=== PATIENT | male | born 1960 | race African-American/Black ===

== ENCOUNTER 2023-09-26 11:08 | Emergency (ER) | payer SELFPAY ==
[2023-09-26 11:18] VITALS: BP 128/81
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
[2023-09-26 13:27] VITALS: BP 132/78
== END 2023-09-26 13:29 | disposition home or self-care (01) ==
LOC: EMR 11:08
PROVIDERS: EMERGENCY PHYSICIAN Student in an Organized Health Care Education/Training Program
DX: S09.90XA Unspecified injury of head, initial encounter (principal); V28.01XA Electric (assisted) bicycle driver injured in noncollision transport accident in nontraffic accident, initial encounter
CPT/HCPCS: 99284; 70450; 72125

== ENCOUNTER 2023-10-14 14:48 | Emergency (ER) | payer SELFPAY ==
[2023-10-14 14:52] VITALS: BP 147/86
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
[2023-10-14] MEDS: ADACEL 0.5 ML IM (16:14)
[2023-10-14 16:21] VITALS: BP 147/86
== END 2023-10-14 16:30 | disposition home or self-care (01) ==
LOC: EMR 14:48
PROVIDERS: EMERGENCY PHYSICIAN Emergency Medicine
DX: S00.511A Abrasion of lip, initial encounter (principal); S20.212A Contusion of left front wall of thorax, initial encounter; V86.56XA Driver of dirt bike or motor/cross bike injured in nontraffic accident, initial encounter; Z23 Encounter for immunization; I10 Essential (primary) hypertension; E78.00 Pure hypercholesterolemia, unspecified; Z87.891 Personal history of nicotine dependence
CPT/HCPCS: 99283; 90471; 71101; 90715; 93005

== ENCOUNTER 2024-07-05 08:47 | Emergency (ER) | payer MEDICARE, SELFPAY ==
[2024-07-05 08:49] VITALS: BP 164/93
--- NOTE | 2024-07-05 09:32 | ED.GENMED ---
History of Present Illness
General
Chief Complaint: Musculo-Skeletal Complaint
Source: patient
Exam Limitations: none
Time Seen by Provider: 07/05/24 08:55
Nursing documentation reviewed up to this point in time: agreed with
History of Present Illness
History of Present Illness:
64-year-old male with a history of seizures, hypertension, hyperlipidemia, prostate cancer not currently being treated, in the process of being worked up, chronic back pain status post multiple back surgeries
Presents for right arm pain after a mechanical trip and fall while he was at work yesterday. Patient says he did not see something behind him and fell on an outstretched right arm landing on his elbow primarily. Patient has mostly right wrist and
right shoulder pain. He has minimal right elbow pain. Is worse with movement. He took Tylenol this morning. No numbness no tingling no weakness. He has not had a headache, did not strike his head and denies any neck pain. He has chronic lower
back pain feels like his right hip and lower back or may be slightly tweaked but not worse than his typical.
Past History
Past History
ED Past Medical History: Cancer (prostate), HTN, Hypercholesterolemia and NIDDM
ED Past Surgical History: Orthopedic
Social History
Tobacco: Former smoker
Alcohol: None
Personal:
Living: alone
Employment: Employed ([employer])
Review of Systems
Review of Systems
Allergies reviewed?: Yes
All Other Systems: Not applicable
Phy Exam
Physical Exam
Physical Exam:
GENERAL: Alert , in no apparent distress, comfortable at rest
HEAD: NCAT
NECK: no midline tenderness, active ROM intact, no paraspinal muscle tenderness;
CARDIAC: Regular rate and rhythm, no edema
LUNGS: Clear breath sounds bilaterally, no acute respiratory distress, no wheezes/rales/rhonchi
NEUROLOGICAL: Alert and oriented, no focal neuro deficits, CN intact, 5/5 strength, sensation intact, ambulating normally
SKIN: Warm and dry, no skin changes
MUSCULOSKELETAL: Right shoulder normal inspection, mild tenderness to the humeral head, patient is able to touch the opposite shoulder but does have some pain with rotation internally, can fully extend and abduct, humerus normal, slight pain with
movement of the elbow but no tenderness reproducible, most tenderness was on the right wrist right scaphoid
handotherwise normla
normal snesation
slight pain with flexion/extension wrist
tenderness snuff box
back: nontendermidline
able toflex
PSYCH: Normal and appropriate interaction.
Course
Orders/Labs/Results
Orders:
Orders
07/05/24 09:05
CR Shoulder, Trauma - Right Urgent
Comment:
Reason For Exam: right shoulder pain after fall
07/05/24 09:06
CR Elbow - Right Min 3 Views Urgent
Comment:
Reason For Exam: right elbow pain after fall
CR Wrist - Right Min 3 Views Urgent
Comment:
Reason For Exam: right wrist pain after fall scpahoid tend
07/05/24 09:55
Ibuprofen [Motrin] 600 mg PO NOW STA
Vital Signs
Initial and Last Documented VS:
Initial Vital Signs
Temp Pulse Resp BP Pulse Ox
36.7 C 61 16 164/93 98
07/05/24 08:49 07/05/24 08:49 07/05/24 08:49 07/05/24 08:49 07/05/24 08:49
Last Documented Vital Signs
Temp Pulse Resp BP Pulse Ox
36.7 C 61 16 164/93 98
07/05/24 08:49 07/05/24 08:49 07/05/24 08:49 07/05/24 08:49 07/05/24 08:49
ED Attending Note
-
Portions of this chart may have been created with voice recognition software.� Occasional wrong word or��sound alike� substitutions may have occurred due to the inherent limitations of voice recognition software.
Discharge Plan
Departure
Patient Disposition: Home (Routine Discharge)
Date of Disposition: 07/05/24
Time of Disposition: 09:53
Patient with high blood pressure during this ER visit?: No
Condition: Fair
Covid-19: Not Applicable
Discharge Problem:
Fall, Sprain of wrist, Sprain of right shoulder
Instructions: Sprain (DC), BLOOD PRESSURE
Referrals:
Celi Joe MD [Family Provider, Internal Medicine] - Follow up in 2-3 days
Stand Alone Forms: Return to Work
Activity Restrictions/Additional Instructions:
You likely sprained your wrist and shoulder from the fall. You had no fractures. You do have arthritis in all of your joints that were x-rayed.
Try ibuprofen every 8 hours if you can tolerate it. Otherwise do Tylenol 3 times a day. Follow-up with Workmen's Comp. as needed. WEAR THE SPLINTN FOR THE NEXT FEW DAYS TO HELP WITH HEALING. Return for worsening symptoms like severe pain,
inability to move, swelling, numbness or tingling or any concerns
Interventions
Interventions:
*Risk Screen - Suicide Last Done: 07/05/24 08:49
*General Assessment Last Done: 07/05/24 09:03
*Neglect/Abuse Screening Last Done: 07/05/24 08:49
*ED- Fall Risk Assessment Last Done: 07/05/24 09:03
*ED COVID-19 Vaccine History Last Done: 07/05/24 09:03
*Nursing Disposition Last Done: 07/05/24 10:18
ED-Musculoskeletal Assessment Last Done: 07/05/24 09:03
Discharge Date and Time
Discharge Date/Time: 07/05/24 10:19
Print Language: JORDANIAN
[2024-07-05] MEDS: MOTRIN 600 MG PO (10:13)
== END 2024-07-05 10:19 | disposition home or self-care (01) ==
LOC: EMR 08:47
PROVIDERS: EMERGENCY PHYSICIAN Student in an Organized Health Care Education/Training Program; FAMILY PHYSICIAN Internal Medicine
DX: S43.401A Unspecified sprain of right shoulder joint, initial encounter (principal); S63.501A Unspecified sprain of right wrist, initial encounter; W01.0XXA Fall on same level from slipping, tripping and stumbling without subsequent striking against object, initial encounter; I10 Essential (primary) hypertension; E78.00 Pure hypercholesterolemia, unspecified; E11.9 Type 2 diabetes mellitus without complications; Z87.891 Personal history of nicotine dependence
CPT/HCPCS: 99283; 73030; 73080; 73110

== ENCOUNTER 2024-10-26 18:13 | Emergency (ER) | payer MEDICARE, SELFPAY ==
[2024-10-26 18:21] VITALS: BP 163/102
[2024-10-26 19:33] VITALS: BMI 31.2
[2024-10-26 19:37] VITALS: BP 147/90
[2024-10-26 20:00] VITALS: BP 150/99
[2024-10-26 20:01] LABS: COVID-19 Antigen Negative (Negative)
--- NOTE | 2024-10-26 20:24 | ED.GENMED ---
History of Present Illness
General
Chief Complaint: Cold/Flu/URI Symptoms
Source: patient
Time Seen by Provider: 10/26/24 19:33
History of Present Illness
History of Present Illness:
Note:
CHIEF COMPLAINT(S)
Exposure to COVID-19.
HISTORY OF PRESENT ILLNESS
The patient is a 64-year-old male who has been exposed to a roommate with COVID-19. He reports no symptoms associated with COVID-19 at this time and confirms a negative COVID-19 test result. The patient works around people all day, which may
increase his exposure risk. He inquires about the potential impact of cancer on COVID-19 severity, revealing his history of prostate cancer, for which he undergoes regular testing every six months. Recently, his prostate-specific antigen levels were
elevated, and a repeat biopsy is planned. He is not receiving chemotherapy.
CHRONIC MEDICAL CONDITIONS SIGNIFICANTLY AFFECTING CARE
The patient has a history of prostate cancer and is undergoing bi-annual testing for his condition.
PHYSICAL EXAM
General: Alert, no acute distress.
Cardiovascular: Heart sounds normal. Blood pressure is noted to be elevated during the visit.
Respiratory: Lungs sound clear to auscultation.
PLAN
1. Advise the patient to maintain isolation practices by ensuring good ventilation in his own space and minimizing prolonged direct exposure to the infected roommate.
2. Recommend the patient take supplements including Vitamin C, Vitamin D, and Zinc to aid in boosting the immune system.
3. Monitor blood pressure and follow-up with a primary care physician to reevaluate.
4. Encourage protective measures such as mask-wearing to reduce risk of infection.
DIFFERENTIAL DIAGNOSIS
The Differential Diagnosis includes, in no particular order and is not limited to:
1. COVID-19 infection
2. Common viral upper respiratory infections
3. Influenza
4. Allergic Rhinitis
5. Sinusitis
6. Pneumonia
7. Pulmonary Embolism
8. Asthma Exacerbation
9. Chronic Obstructive Pulmonary Disease Exacerbation
10. Anxiety-induced symptoms
Disposition:
SUMMARY OF ENCOUNTER
A 63-year-old male presented for evaluation following exposure to COVID-19. The patient is asymptomatic and reports a negative COVID-19 test result. During the visit, it was confirmed that he remains in good health with no symptoms of COVID-19.
PLAN
1. Recommend the patient take vitamin supplements such as Vitamin C, Vitamin D, and Zinc to support immune function.
2. Advise the patient to minimize exposure to others, particularly in healthcare settings, to reduce the risk of COVID-19 transmission.
PATIENT EDUCATION AND COUNSELING
The patient was educated on the importance of avoiding exposure to the infected individual and maintaining isolation practices to prevent COVID-19 transmission.
MEDICAL DECISION MAKING
-Complexity of Data Reviewed: Chronic conditions affecting care [None mentioned] COVID-19 infection, common viral upper respiratory infections, influenza, allergic rhinitis, sinusitis, pneumonia, pulmonary embolism, asthma exacerbation, chronic
obstructive pulmonary disease exacerbation, anxiety-induced symptoms.
DATA
Category 1
No additional labs or imaging were ordered since the patient is asymptomatic and the current COVID-19 test was negative.
RISK
Consideration of Admission/Observation was not necessary, as the patient remains asymptomatic, vitals are stable, and the COVID-19 test is negative.
DIAGNOSIS
Risk of COVID-19 exposure [Z20.828].
Past History
Past History
ED Past Medical History: Cancer (prostate), HTN, Hypercholesterolemia and NIDDM
ED Past Surgical History: Orthopedic
Social History
Tobacco: Former smoker
Alcohol: None
Personal:
Living: alone
Employment: Employed ([employer] shop)
Phy Exam
Physical Exam
Physical Exam:
.
Course
Orders/Labs/Results
Orders:
Orders
10/26/24 19:37
COVID-19 Antigen Urgent
Source: Nasal Swab
Vital Signs
Initial and Last Documented VS:
Initial Vital Signs
Temp Pulse Resp BP Pulse Ox
98.3 F 77 18 163/102 99
10/26/24 18:21 10/26/24 18:21 10/26/24 18:21 10/26/24 18:21 10/26/24 18:21
Last Documented Vital Signs
Temp Pulse Resp BP Pulse Ox
98.3 F 75 18 150/99 99
10/26/24 18:21 10/26/24 19:45 10/26/24 18:21 10/26/24 20:00 10/26/24 20:26
*Pulse Oximetry
SaO2: 99
Oxygen Mode of Delivery: Room air
Patient hypoxic: no
*Critical Care Note
Total Time (30-74mins, 75-104mins- exclusive of procedures): Not Applicable
ED Attending Note
-
Portions of this chart may have been created with voice recognition software.� Occasional wrong word or��sound alike� substitutions may have occurred due to the inherent limitations of voice recognition software.
Discharge Plan
Departure
Patient Disposition: Home (Routine Discharge)
Date of Disposition: 10/26/24
Time of Disposition: 20:24
Patient with high blood pressure during this ER visit?: Yes
Discharge Problem:
Exposure to COVID-19 virus
Instructions: COVID-19 in adults (DC), BLOOD PRESSURE
Referrals:
Tan Coello MD [Family Provider, Psychiatry]
Activity Restrictions/Additional Instructions:
As discussed, consider vitamin C, vitamin D and zinc supplementation. Return immediately for cough, fevers, difficulty breathing, weakness or any other concerns. Your blood pressure was elevated while in the Emergency Department, please have your
doctor re-evaluate it in the next 48 hours as untreated hypertension may lead to serious complications.
Interventions
Interventions:
*Risk Screen - Suicide Last Done: 10/26/24 19:34
*General Assessment Last Done: 10/26/24 19:34
*Neglect/Abuse Screening Last Done: 10/26/24 19:34
*ED- Fall Risk Assessment Last Done: 10/26/24 19:34
*ED COVID-19 Vaccine History Last Done: 10/26/24 19:34
ED- Pulmonary Assessment Last Done: 10/26/24 20:08
Discharge Date and Time
Print Language: SLOVAK
== END 2024-10-26 20:35 | disposition home or self-care (01) ==
LOC: EMR 18:13
PROVIDERS: Student in an Organized Health Care Education/Training Program; EMERGENCY PHYSICIAN Emergency Medicine
DX: Z20.822 Contact with and (suspected) exposure to COVID-19 (principal); E11.9 Type 2 diabetes mellitus without complications; I10 Essential (primary) hypertension; E78.00 Pure hypercholesterolemia, unspecified; Z85.46 Personal history of malignant neoplasm of prostate; Z87.891 Personal history of nicotine dependence
CPT/HCPCS: 99283; 87811